=== PATIENT | male | born 1985 | race Caucasian/White ===

== ENCOUNTER 2024-04-07 12:40 | Emergency (ER) | payer OTHER, SELFPAY ==
[2024-04-07 12:56] VITALS: RESP 16; BMI 19.2
[2024-04-07 12:57] VITALS: PULSE 82; RESP 18; O2SAT 99
--- NOTE | 2024-04-07 12:59 | PC.NURSE ---
Ajith comes to the ED today reporting suicidal and homicidal ideation without plans at this time. He reports feeling like he is in a bad space and needs help. he reports he has never been here before, was recently in [place] for treatment. Pt reports his suboxone prescription is with his girlfriend who is inpatient at [facility] currently. He feels as though he might start withdrawing from his Suboxone. Patient is calm and cooperative, help seeking, offering no complaints at this time. Patient aware of plan of care for medical clearance and then CARE team eval
--- NOTE | 2024-04-07 13:09 | ED.PSYCH ---
HPI - Psych General Chief Complaint: Psychiatric Symptoms Stated Complaint: crisis Time Seen by Provider: 04/07/24 12:50 Source: patient Mode of arrival: ambulatory Limitations: no limitations History of Present Illness ED Provider: BOB HELTON Narrative: 39 yo male with PMH of opiate use disorder states he is on 2films of 8/2mg in AM and 1 film at night. He comes in today with c/o SI/HI vague not directed at anyone. He is homeless and he states he is not doing well. His missed his suboxone this AM MD complaint: suicidal ideation, feels depressed and homicidal ideation Onset (ago): day(s) Duration: getting worse History of same: Yes Relieving factors: none Exacerbating factors: other Context: significant life stressor Associated psychiatric symptoms: depression, suicidal ideation and homicidal ideation Associated symptoms: denies other symptoms Treatments prior to arrival: none If self harm: admits thoughts of self harm Related Data Allergies Allergy/AdvReac Type Severity Reaction Status Date / Time Penicillins Allergy Hives Verified 04/07/24 12:56 Review of Systems Review of Systems: Constitutional : No Fever, No Chills ENT/Mouth : No Ear Pain, No Nasal Congestion, No sore throat Eyes: No Eye Pain, No Swelling, No Redness Cardiovascular : No Chest Pain, No SOB Respiratory : No Cough, No Sputum, No Dyspnea Gastrointestinal : No Nausea, No Vomiting, No Diarrhea, No Hematochezia, No Melena Genitourinary : No Dysuria, No Urinary Frequency, No Hematuria Musculoskeletal : No Myalgias Skin : No Skin Lesions, No rash Neuro : No Weakness, No Numbness, No Paresthesias, No Dizziness, No Headache Psych : positive Anxiety, positive Depression, positive SI/HI All other systems reviewed and are negative [facility] Past Medical History Attestation statement: The following information was validated with the patient. Source: old records reviewed Medical History Opiate use Social History Social History Alcohol intake: former Smoked in Last 30 Days: Yes Use of substances other than those prescribed or required for medical reasons: Yes Substance Use Type: Crack/Cocaine Substance Use Frequency: Chronic Longstanding Last Used Substance: Days (ago) Any prior treatment program specific to substance use: No Advance Directives: No Advance Directives Information Provided: No Do you have a plan to hurt others: No Plan Physical Exam Vital Signs: Vital Signs: Last Vital Signs Pulse 82 04/07/24 12:57 Resp 18 04/07/24 12:57 Pulse Ox 99 04/07/24 12:57 O2 Del Method Room Air 04/07/24 12:57 BMI result Body Mass Index 19.2 Appearance: Alert. Oriented X3. No acute distress. anxious Eyes: Pupils equal, round and reactive to light. ENT: Pharynx normal. Neck: Normal inspection. Neck supple. CVS: Normal heart rate and rhythm. Pulses normal. Respiratory: No respiratory distress. Breath sounds normal. Abdomen: Soft and nontender. Skin: Skin warm and dry. Normal skin color. Normal skin turgor. Extremities: No lower extremity edema. No calf ttp Neuro: Oriented X 3. No motor deficit. No sensory deficit. CN2-12 intact Medical Decision Making Medical Decision Making MDM Narrative: 39 yo male with opiate use disorder here with c/o SI / HI depression at this time will need basic labs, CARE team consult. He states he is on 8/2SL suboxone 2 in AM and one in PM will start on his AM dose to prevent withdrawals Differential Diagnosis Differential Diagnoses: The differential diagnosis associated with the presentation includes SI, homelessness, drug abuse Admission/Observation Consideration of admission/observation: Escalation of care including admission/observation considered physician observation started at 112pm pending CARE team Consult Healthcare Provider Management of the patient was discussed with: Behavioral Health Provider Lab Data [facility] Lab Attestation statement: I reviewed the patient's lab results. Discharge Plan Discharge Clinical Impression: Polysubstance abuse, Suicidal ideation Patient Disposition: Still a Patient Interventions: Edmunds-Suicide Risk Severity Scale Last Done: 04/07/24 12:57 Print Language: German
[2024-04-07 13:12] LABS: Appearance Urine Clear; Color Urine Yellow; Glucose Urine UA Negative (Negative); Leukocyte Esterase Urine Negative (Negative); Nitrite Urine Negative (Negative); PH 6.5 (5.0-9.0); Specific Gravity - Urine 1.015 (1.005-1.025); UMIC TRIGGER UACC YES; Urine Blood Trace (Negative); Urine Ketones Negative (Negative); Urine Protein Negative (Neg-Trace)
[2024-04-07 13:14] LABS: Bacteria Urine None Seen (None Seen); Hyaline Casts Urine 0-2 /LPF (0-2); Squamous Epithelial Cell Urine 0-2 /HPF (0-2); WBC Urine 0-5 /HPF (0-5)
[2024-04-07 13:27] LABS: Amphetamine Screen Urine Not Detected (Not Detect); Barbiturates, Urine Not Detected (Not Detect); Benzodiazepines Screen Urine Not Detected (Not Detect); Buprenorphine Scr Positive (Not Detect); Cannabinoid Screen Urine Not Detected (Not Detect); Cocaine Screen Urine POSITIVE (Not Detect); Fentanyl, urine Not Detected (Not Detect); Methadone Screen, Urine Not Detected (Not Detect); Opiate Screen Urine Not Detected (Not Detect); Oxycodone Screen Urine Not Detected (Not Detect); Phencyclidine Screen Urine Not Detected (Not Detect)
[2024-04-07] MEDS: Buprenorphine/Naloxone 8/2 mg FILM 2 FILM SUBLINGUAL (13:35)
[2024-04-07 15:10] LABS: MANUAL DIFF FLAG NO
[2024-04-07 15:12] LABS: Basophils Percent Auto 0.5 % (0-2); Eosinophils Absolute Auto 0.1 X10*3/uL (0.0-0.4); Eosinophils Percent Auto 1.7 % (0-4); Hematocrit 42.2 % (42.0-52.0); Hemoglobin 13.9 g/dl (14.0-18.0); Imm Gran Abs Auto 0.02 X10*3/uL (0.00-0.03); Imm Gran Pct Auto 0.3 % (0.0-0.4); Lymphocytes Absolute Auto 1.5 X10*3/uL (1.2-4.9); Lymphocytes Percent Auto 26.2 % (20-40); Mean Corpuscular HGB Conc 32.9 g/dl (31.0-36.0); Mean Corpuscular Hemoglobin 29.4 pg (27.0-33.0); Mean Corpuscular Volume 89.2 fL (80.0-98.0); Mean Platelet Volume 8.4 fL (9.4-12.4); Monocytes Absolute Auto 0.4 X10*3/uL (0.1-1.2); Monocytes Percent Auto 6.9 % (2-11); Neutrophils Absolute Auto 3.8 x10*3/uL (2.0-8.3); Neutrophils Percent Auto 64.4 % (45-73); Platelet Count 392 X10*3/uL (160-400); Red Blood Count 4.73 X10*6/uL (4.60-5.80); Red Cell Distribution Width 13.5 % (11.0-16.0); White Blood Count 5.8 X10*3/uL (4.8-10.8)
--- NOTE | 2024-04-07 15:18 | MHC.CARE ---
pt dual dx bedsearch. Dr. Waterman consulted
[2024-04-07] MEDS: Nicotine 21 MG PATCH.TD24 TRANSDERMA (15:22)
[2024-04-07 15:24] LABS: Anion Gap 13 (12-20)
[2024-04-07 15:27] LABS: Albumin Level 3.8 g/dL (3.5-5.0); Aspartate Amino Transferase 17 U/L (5-37); Bilirubin Total 0.2 mg/dL (0.0-1.0); Blood Urea Nitrogen 14 mg/dL (9-16); Calcium 9.5 mg/dL (8.4-10.2); Carbon Dioxide 27 mmol/L (22-29); Chloride 105 mmol/L (96-108); Creatinine Clr Calc Pharmacy 104.4; Estimated Glomerular Filt Rate > 60; Ethanol < 10 mg/dL; Glucose Random 119 mg/dL (60-115); Potassium 4.5 mmol/L (3.3-5.1); Sodium 140 mmol/L (135-145)
[2024-04-07 15:43] LABS: Alanine Aminotransferase 12 U/L (0-40); Alkaline Phosphatase 72 U/L (39-117)
--- NOTE | 2024-04-07 18:39 | PC.NURSE ---
Patient calm and cooperative, no apparent distress noted at this time. offering no complaints to this RN
[2024-04-07 18:54] VITALS: BP 107/55; PULSE 59; RESP 16; TEMP 36.6; O2SAT 97
[2024-04-07] MEDS: Buprenorphine/Naloxone 8/2 mg FILM 1 FILM SUBLINGUAL (21:50)
[2024-04-08] MEDS: LORazepam 1 MG TABLET 2 MG PO ×2 (01:46→09:09)
--- NOTE | 2024-04-08 01:47 | PC.NURSE ---
pt moved from [facility] to [facility] d/t acute pt arrival. PT endorsing anxiety and difficulty fall asleep. notified provider. Verbal read back order placed as ordered. Pt medicated as per jun. Plan of care ongoing
[2024-04-08 06:20] VITALS: BP 106/68; PULSE 68; RESP 16; TEMP 36.5; O2SAT 98
--- NOTE | 2024-04-08 07:17 | PC.NURSE ---
Assumed care of patient at 0645, patient appears to be sleeping, respirations even and unlabored, no apparent distress is noted. Continue plan of care for dual dx bedsearch
[2024-04-08] MEDS: Buprenorphine/Naloxone 8/2 mg FILM 2 FILM SUBLINGUAL (08:07)
[2024-04-08] MEDS: Nicotine 21 MG PATCH.TD24 TRANSDERMA (09:31)
--- NOTE | 2024-04-08 09:32 | PC.NURSE ---
Pt requesting Ativan and Nicotine Patch. verbal order for both
--- NOTE | 2024-04-08 09:39 | PC.NURSE ---
Pt took shower, ate breakfast and took all morning medications. Patient appears to be sleeping at this time, RR even and unlabored, no apparent distress noted
--- NOTE | 2024-04-08 12:15 | PHA.MEDREC ---
Addendum entered by Julio César Brown [facility] 04/08/24 12:39: MED REC CHECKED BY [facility] Original Note: Pharmacy Consult ? Medication Reconciliation Pharmacy has completed the medication reconciliation. Spoke with patient that states [facility], [facility] Called and confirmed meds. Pt also stated they take suboxone.
[2024-04-08 17:13] VITALS: BP 107/68; PULSE 71; RESP 18; TEMP 37.2; O2SAT 99
--- NOTE | 2024-04-08 17:23 | PC.NURSE ---
Patient requesting to see care team to follow up on plan of care. Pt aware that care team will be seeing him for a MSU at some point today
[2024-04-08] MEDS: Ibuprofen 600 MG TABLET PO (18:01)
[2024-04-08] MEDS: LORazepam 1 MG TABLET PO (18:01)
[2024-04-08] MEDS: Lidocaine 4 % Patch ADH..PATCH 1 PATCH TRANSDERMA (19:32)
[2024-04-08] MEDS: Buprenorphine/Naloxone 8/2 mg FILM 1 FILM SUBLINGUAL (20:08)
[2024-04-08 20:10] VITALS: BP 105/65; PULSE 74; RESP 16; TEMP 37.2; O2SAT 95
[2024-04-09 02:21] VITALS: BP 109/72; PULSE 73; RESP 17; TEMP 36.6; O2SAT 95
[2024-04-09] MEDS: LORazepam 1 MG TABLET 2 MG PO ×2 (07:54→14:24)
--- NOTE | 2024-04-09 08:17 | ECG_ITS ---
Test Reason : MED CLEARANCE Blood Pressure : / mmHG Vent. Rate : 079 BPM Atrial Rate : 079 BPM P-R Int : 146 ms QRS Dur : 080 ms QT Int : 338 ms P-R-T Axes : 080 076 063 degrees QTc Int : 387 ms Normal sinus rhythm Normal ECG No previous ECGs available Referred By: Monica Waterman Electronically Signed By:LUKASZ HADDAD
[2024-04-09] MEDS: Buprenorphine/Naloxone 8/2 mg FILM 2 FILM SUBLINGUAL (08:36)
--- NOTE | 2024-04-09 08:55 | MHC.CARE ---
Pt was accepted to [facility] for today by [facility]. The accepting provider is Dr. Tracey and the address is [address] [place] [id number]. The ETA will be discussed during rn report. Pod RN was given the number to call [facility] ([phone] [place]). [facility] requested a covid test which was also relayed to the RN. Care Team was notified of placement and asked to fill out the pt's [facility] form for insurance purposes.
[2024-04-09] MEDS: Nicotine 21 MG PATCH.TD24 TRANSDERMA (09:21)
[2024-04-09 09:45] LABS: COVID-19 Test Negative (Negative); IDNOW Serial# 08D9AD1C
--- NOTE | 2024-04-09 10:58 | PC.NURSE ---
report given to nurse at [facility]. transport to be booked
[2024-04-09 14:28] VITALS: BP 109/72; PULSE 73; RESP 20; TEMP 36.6; O2SAT 95
== END 2024-04-09 14:29 ==
PROVIDERS: Emergency Provider Emergency Medicine
DX: F19.10 Other psychoactive substance abuse, uncomplicated (principal); R45.851 Suicidal ideations; R45.850 Homicidal ideations; F32.A Depression, unspecified; F11.20 Opioid dependence, uncomplicated; Z59.00 Homelessness unspecified; Z11.52 Encounter for screening for COVID-19
CPT/HCPCS: 36415; 80053; 80307; 81001; 85025; 87635; 93005; 99285; S9485

== ENCOUNTER → 2024-04-09 08:17 | Outpatient (BNV) | payer OTHER, SELFPAY | PROVIDERS: Emergency Provider Emergency Medicine; Visit Provider Internal Medicine | DX: F19.10 Other psychoactive substance abuse, uncomplicated (principal) | CPT/HCPCS: 93010 ==